=== PATIENT | female | born 1980 | race Caucasian/White ===

== ENCOUNTER 2022-06-28 15:51 | Emergency (ER) | payer OTHER ==
[2022-06-28] MEDS ORDERED: Ondansetron PF 4 MG/2 ML Vial ONE (17:43)
[2022-06-28 17:58] LABS: #Monocytes 0.2 10x3/uL (0.0-1.1); #Neutrophils 8.7 10x3/uL (1.5-8.4); %Basophils 0.3 % (0.0-2.0); %Eosinophils 0.4 % (0.0-6.0); %Lymphocytes 4.3 % (18.0-47.0); %Monocytes 2.4 % (0.0-10.0); ALT (SGPT) 16 U/L (8-55); AST (SGOT) 26 U/L (5-34); Albumin 3.8 g/dL (3.5-5.0); Alkaline Phosphatase 50 U/L (40-110); Anion Gap 18 mmol/L (10-20); BUN (Urea Nitrogen) 11 mg/dL (7.0-18.7); Bilirubin, Total 0.6 mg/dL (0.2-1.2); Calc. Creatinine Clearance 0 mL/min (70-130); Calcium 8.6 mg/dL (7.8-10.44); Carbon Dioxide 16 mmol/L (22-29); Chloride 104 mmol/L (98-107); Estimated GFR 111; Globulin 3.2 g/dL (2.4-3.5); Glucose 87 mg/dL (70-105); Lipase 17 U/L (8-78); Mean Corpuscular HGB CONC 33.6 g/dL (32.0-36.0); Mean Corpuscular Hemoglobin 30.8 pg (27.0-33.0); Mean Corpuscular Volume 91.7 fl (81.6-98.3); Mean Platelet Volume 11.9 fl (7.4-10.4); Platelet Count 114 10x3/uL (150-450); Potassium 3.9 mmol/L (3.5-5.1); RBC Distribution Width 14.1 % (11.5-14.5); Red Blood Cell (RBC) Count 4.22 10x6/uL (3.90-5.03); Sodium 134 mmol/L (136-145); White Blood Cell (WBC) Count 9.5 10x3/uL (3.5-10.5)
[2022-06-28 18:44] LABS: SARS-CoV-2 NAA Rapid Test Not Detected (NotDetected)
[2022-06-28 18:48] LABS: Bilirubin 1+ (Negative); Blood, Urine Negative (Negative); Clarity Slightly Cloudy (Clear); Glucose, Urine (Dipstick) Normal (Negative); Ketone, Urine 5 mg/dL (Negative); Leukocyte 25 (Negative); Nitrite Negative (Negative); Protein, Urine (Dipstick) 30 mg/dl (Neg-Trace); Urobilinogen Normal mg/dL (Less than 2)
[2022-06-28 19:23] LABS: RBC/HPF 0-3 HPF (0-3); WBC/HPF 0-3 HPF (0-3)
[2022-06-28 19:25] LABS: Bacteria/HPF None Seen HPF (None Seen); Mucous/LPF 1+ LPF (<2+)
== END 2022-06-28 19:53 | disposition home or self-care (01) ==
LOC: CSHERS 15:51
DX: B34.9 Viral infection, unspecified (principal); Z20.822 Contact with and (suspected) exposure to COVID-19
CPT/HCPCS: 76815; 80053; 81003; 81015; 83690; 85025; 87081; 87430; 96374; J2405

== ENCOUNTER 2022-11-08 05:57 | Inpatient (IN) | payer BC, OTHER ==
[2022-11-07 11:41] LABS: Hematocrit 37.3 % (34.9-44.5); Hemoglobin 12.2 g/dL (12.0-15.5); Platelet Count 173 10x3/uL (150-450)
[2022-11-07 12:02] LABS: SARS-CoV-2 NAA Rapid Test Not Detected (NotDetected)
[2022-11-07 12:07] LABS: HBSAg Index 0.16 S/CO (0-0.99); Hep B Surf Ag Non-Reactive S/CO (NonReactive)
[2022-11-07 12:08] LABS: Syphilis Antibody Nonreactive (Nonreactive); Syphilis Antibody Index 0.06 S/CO (<1.00 Non-Reactive)
[2022-11-08 05:59] VITALS: BMI 29.5
[2022-11-08] MEDS ORDERED: Famotidine/PF 20 mg/2ml Vial SLOW IVP PRN (06:01)
[2022-11-08] MEDS ORDERED: Promethazine HCl 25 MG/ML VIAL IM PRN ×3 (06:01→11:36)
[2022-11-08] MEDS ORDERED: Lactated Ringer's 1,000 ML IV SCH (06:01)
[2022-11-08] MEDS ORDERED: Ondansetron PF 4 MG/2 ML Vial IVP PRN ×2 (06:01→09:01)
[2022-11-08] MEDS ORDERED: CEFAZOLIN 2 GM in Sodium Chloride 0.9% 100 ML IVPB SCH (06:01)
[2022-11-08] MEDS ORDERED: Bicitra 30 ML UDCUP PO PRN (06:01)
[2022-11-08] MEDS ORDERED: Misoprostol 200 MCG TAB PR PRN (06:01)
[2022-11-08] MEDS ORDERED: Oxytocin 30 units/NS 500 ML 500 ML IV SCH (06:01)
[2022-11-08] MEDS ORDERED: hydrALAZINE 20 MG/ML VIAL SLOW IVP PRN ×2 (06:01→11:36)
[2022-11-08] MEDS ORDERED: Diphenoxylate HCl/Atropine Tablet PO PRN ×2 (06:01)
[2022-11-08] MEDS ORDERED: Carboprost 250 MCG/ML AMP IM PRN (06:01)
[2022-11-08] MEDS ORDERED: Morphine PF 10 MG/10 ML VIAL ONE (07:03)
[2022-11-08] MEDS ORDERED: Ondansetron PF 4 MG/2 ML Vial ONE (07:03)
[2022-11-08] MEDS ORDERED: Oxytocin 10 UNITS/ML VIAL ONE (07:03)
[2022-11-08] MEDS ORDERED: PHENYLEPHRINE-NS 100 MCG/ML 10 ML SYRINGE ONE (07:03)
[2022-11-08] MEDS ORDERED: Midazolam HCl 2 mg/2 ml Vial ONE (07:59)
[2022-11-08] MEDS ORDERED: Erythromycin Base 0.5% Oint 1 GM TUBE ONE (08:18)
[2022-11-08] MEDS ORDERED: Naloxone HCl 0.4 mg/ml Vial IVP PRN ×2 (09:01)
[2022-11-08] MEDS ORDERED: Promethazine HCl 25 MG SUPP PR PRN (09:01)
[2022-11-08] MEDS ORDERED: Naloxone HCl 0.4 mg/ml Vial IV PRN (09:01)
[2022-11-08] MEDS ORDERED: Ondansetron HCl/PF 4 MG/2 ML Vial IVP PRN (09:01)
[2022-11-08] MEDS ORDERED: diphenhydrAMINE 50 MG/ML VIAL IVP PRN (09:01)
[2022-11-08] MEDS ORDERED: Moisturizing Cream (Eucerin) 113 GM JAR TOP PRN ×2 (09:01→10:19)
[2022-11-08] MEDS ORDERED: Fentanyl 50 MCG/1 ML VIAL SLOW IVP PRN (09:01)
[2022-11-08] MEDS ORDERED: Ketorolac Tromethamine 30 MG/ML VIAL IVP SCH (09:15)
[2022-11-08] MEDS ORDERED: NO NARCS FOR 12 HRS FS PRN (09:15)
[2022-11-08] MEDS ORDERED: diphenhydrAMINE 25 MG CAP PO PRN (11:36)
[2022-11-08] MEDS ORDERED: HYDROcodone/Acetaminophen 5/325 mg Tablet PO PRN ×3 (11:36→21:15)
[2022-11-08] MEDS ORDERED: Lanolin Ointment 7 GM TUBE TOP PRN (11:36)
[2022-11-08] MEDS ORDERED: Bisacodyl 10 MG SUPP PR PRN (11:36)
[2022-11-08] MEDS ORDERED: Simethicone Chewable 80 MG TAB PO PRN (11:36)
[2022-11-08] MEDS ORDERED: Boostrix 0.5 ML (Tdap) VIAL (>/=7 yrs of age) IM ONE (11:36)
[2022-11-08] MEDS ORDERED: Ferrous Sulfate 325 MG TAB PO SCH (12:00)
[2022-11-08] MEDS ORDERED: Docusate 100 MG CAP PO SCH (12:00)
[2022-11-08] MEDS ORDERED: Prenatal Vitamin 1 TAB PO SCH (12:00)
[2022-11-08] MEDS: Ketorolac Tromethamine 30 MG/ML VIAL IVP PRN ×2 (13:09→20:18)
[2022-11-08] MEDS: Acetaminophen 325 MG TAB PO PRN (17:53)
[2022-11-08] MEDS: Ferrous Sulfate 325 MG TAB PO SCH (19:47)
[2022-11-08] MEDS: Docusate 100 MG CAP PO SCH (20:18)
[2022-11-08] MEDS ORDERED: Zolpidem Tartrate 5 MG TAB PO PRN (21:00)
[2022-11-09] MEDS: HYDROcodone/Acetaminophen 5/325 mg Tablet PO PRN ×2 (00:05→21:41)
[2022-11-09 04:17] LABS: Hematocrit 31.5 % (34.9-44.5); Hemoglobin 10.3 g/dL (12.0-15.5); Mean Corpuscular HGB CONC 32.7 g/dL (32.0-36.0); Mean Corpuscular Hemoglobin 30.7 pg (27.0-33.0); Mean Corpuscular Volume 93.8 fl (81.6-98.3); Mean Platelet Volume 12.9 fl (7.4-10.4); Platelet Count 150 10x3/uL (150-450); RBC Distribution Width 13.5 % (11.5-14.5); Red Blood Cell (RBC) Count 3.36 10x6/uL (3.90-5.03); White Blood Cell (WBC) Count 13.7 10x3/uL (3.5-10.5)
[2022-11-09] MEDS: Docusate 100 MG CAP PO SCH ×2 (06:48→19:14)
[2022-11-09] MEDS: Ketorolac Tromethamine 30 MG/ML VIAL IVP PRN (08:20)
[2022-11-09] MEDS: Prenatal Vitamin 1 TAB PO SCH (12:37)
[2022-11-09] MEDS: Ferrous Sulfate 325 MG TAB PO SCH ×2 (12:37→19:14)
[2022-11-09] MEDS: Ibuprofen 800 MG TAB PO SCH ×2 (14:14→21:35)
[2022-11-09] MEDS ORDERED: Ibuprofen 800 MG TAB PO SCH (21:00)
[2022-11-10] MEDS: Ibuprofen 800 MG TAB PO SCH ×3 (06:30→21:33)
[2022-11-10] MEDS: HYDROcodone/Acetaminophen 5/325 mg Tablet PO PRN ×4 (08:34→21:33)
[2022-11-10] MEDS: Prenatal Vitamin 1 TAB PO SCH (13:08)
[2022-11-10] MEDS: Ferrous Sulfate 325 MG TAB PO SCH ×2 (13:08→21:14)
[2022-11-10] MEDS: Docusate 100 MG CAP PO SCH ×2 (13:08→21:14)
[2022-11-11] MEDS: HYDROcodone/Acetaminophen 5/325 mg Tablet PO PRN ×3 (01:41→09:39)
[2022-11-11] MEDS: Ibuprofen 800 MG TAB PO SCH (05:48)
[2022-11-11 07:52] VITALS: TEMP 97.8
[2022-11-11] MEDS: Docusate 100 MG CAP PO SCH (09:35)
[2022-11-11] MEDS: Ferrous Sulfate 325 MG TAB PO SCH (09:35)
[2022-11-11] MEDS: Prenatal Vitamin 1 TAB PO SCH (09:36)
[2022-11-11] MEDS: Acetaminophen 325 MG TAB PO PRN (12:24)
[2022-11-11 13:11] VITALS: BP 154/88
== END 2022-11-11 12:35 | disposition home or self-care (01) | DRG 788 ==
LOC: CSHLD 05:57 → CSHPP 11:00
PROVIDERS: ADMIT Obstetrics & Gynecology; ATTEND Obstetrics & Gynecology
PROC: 10D00Z1 Extraction of Products of Conception, Low, Open Approach (ICD-10-PCS; principal; 2022-11-10)
PROC: 3E033VJ Introduction of Other Hormone into Peripheral Vein, Percutaneous Approach (ICD-10-PCS; 2022-11-10)
DX: O34.211 Maternal care for low transverse scar from previous cesarean delivery (principal); Z3A.39 39 weeks gestation of pregnancy; O99.02 Anemia complicating childbirth; D64.9 Anemia, unspecified; Z20.822 Contact with and (suspected) exposure to COVID-19; O26.893 Other specified pregnancy related conditions, third trimester; Z37.0 Single live birth
CPT/HCPCS: 36415; 51702; 85014; 85018; 85027; 85049; 86780; 86850; 86900; 86901; 87340; J1885; J2250; J2274; J2405; J2590; S0028; U0002

== ENCOUNTER 2022-11-15 12:21 | Emergency (ER) | payer BC ==
[2022-11-15 14:00] LABS: Bilirubin Neg (Negative); Blood, Urine 250 (Negative); Clarity Clear (Clear); Glucose, Urine (Dipstick) Normal (Negative); Ketone, Urine Negative (Negative); Leukocyte Negative (Negative); Nitrite Negative (Negative); Protein, Urine (Dipstick) 15 mg/dl (Neg-Trace); Urobilinogen Normal mg/dL (Less than 2)
[2022-11-15 14:12] LABS: Bacteria/HPF 1+ HPF (None Seen); CAUTI Indications for Culture Pregnancy; Squamous Epithelial 0-3 HPF (0-3); WBC/HPF 0-3 HPF (0-3)
[2022-11-15 14:13] LABS: Mucous/LPF 1+ LPF (<2+)
[2022-11-15 14:14] LABS: Urine Culture Reflex Yes Yes
[2022-11-15 15:05] LABS: #Eosinphils 0.2 10x3/uL (0.0-0.5); #Monocytes 0.5 10x3/uL (0.0-1.1); #Neutrophils 5.1 10x3/uL (1.5-8.4); %Basophils 0.5 % (0.0-2.0); %Eosinophils 2.4 % (0.0-6.0); %Lymphocytes 21.3 % (18.0-47.0); %Monocytes 6.3 % (0.0-10.0); %Neutrophils 67.4 % (40.0-75.0); Mean Corpuscular HGB CONC 32.1 g/dL (32.0-36.0); Mean Corpuscular Hemoglobin 30.3 pg (27.0-33.0); Mean Corpuscular Volume 94.3 fl (81.6-98.3); Mean Platelet Volume 11.1 fl (7.4-10.4); Platelet Count 243 10x3/uL (150-450); RBC Distribution Width 12.9 % (11.5-14.5); Red Blood Cell (RBC) Count 2.97 10x6/uL (3.90-5.03); White Blood Cell (WBC) Count 7.5 10x3/uL (3.5-10.5)
[2022-11-15 15:16] LABS: ALT (SGPT) 13 U/L (8-55); AST (SGOT) 20 U/L (5-34); Albumin 3.1 g/dL (3.5-5.0); Alkaline Phosphatase 77 U/L (40-110); Anion Gap 13 mmol/L (10-20); BUN (Urea Nitrogen) 12 mg/dL (7.0-18.7); Bilirubin, Total 0.2 mg/dL (0.2-1.2); Calc. Creatinine Clearance 0 mL/min (70-130); Calcium 8.8 mg/dL (7.8-10.44); Carbon Dioxide 24 mmol/L (22-29); Chloride 108 mmol/L (98-107); Estimated GFR 115; Globulin 2.9 g/dL (2.4-3.5); Glucose 86 mg/dL (70-105); Potassium 4.4 mmol/L (3.5-5.1); Sodium 141 mmol/L (136-145)
== END 2022-11-15 16:20 | disposition home or self-care (01) ==
LOC: CSHERS 12:21
DX: I10 Essential (primary) hypertension (principal)
CPT/HCPCS: 36415; 80053; 81001; 85025; 87086; 93005